=== PATIENT | female | born 1990 | race Two or more races ===

== ENCOUNTER 2022-10-28 19:01 | Emergency (ER) | payer OTHER ==
[~2022-10-28] VITALS: Ht 167.6 cm; Wt 102.1 kg
== END 2022-10-28 22:32 | disposition home or self-care (01) ==
LOC: ER 19:01
DX: O20.9 Hemorrhage in early pregnancy, unspecified (principal); N39.0 Urinary tract infection, site not specified; O23.41 Unspecified infection of urinary tract in pregnancy, first trimester; Z3A.01 Less than 8 weeks gestation of pregnancy

== ENCOUNTER 2022-12-16 13:44 | Emergency (ER) | payer OTHER ==
[~2022-12-16] VITALS: Ht 167.6 cm; Wt 95.7 kg
== END 2022-12-16 19:14 | disposition home or self-care (01) ==
LOC: ER 13:44
DX: O21.9 Vomiting of pregnancy, unspecified (principal); Z3A.12 12 weeks gestation of pregnancy

== ENCOUNTER 2022-12-17 14:36 | Outpatient (CLI) | payer OTHER | END 2022-12-17 15:45 | disposition home or self-care (01) | LOC: PRENATAL 14:36 | PROVIDERS: ATTEND Obstetrics & Gynecology Maternal & Fetal Medicine | DX: O36.80X0 Pregnancy with inconclusive fetal viability, not applicable or unspecified (principal); O26.859 Spotting complicating pregnancy, unspecified trimester; Z3A.12 12 weeks gestation of pregnancy ==

== ENCOUNTER 2023-02-01 22:16 | Emergency (ER) | payer OTHER ==
[~2023-02-01] VITALS: Ht 167.6 cm; Wt 93.4 kg
[2023-02-02] MEDS ORDERED: PEPCID AC20 MG PO (02:24)
== END 2023-02-02 02:26 | disposition home or self-care (01) ==
LOC: ER 22:16
DX: O99.612 Diseases of the digestive system complicating pregnancy, second trimester (principal); R10.11 Right upper quadrant pain; Z3A.18 18 weeks gestation of pregnancy; K80.20 Calculus of gallbladder without cholecystitis without obstruction

== ENCOUNTER 2023-02-11 14:49 | Outpatient (CLI) | payer OTHER ==
[~2023-02-11 14:49] MED LIST: PEPCID AC20 MG PO
== END 2023-02-11 17:02 | disposition home or self-care (01) ==
LOC: PRENATAL 14:49
PROVIDERS: ATTEND Obstetrics & Gynecology Maternal & Fetal Medicine
DX: O35.3XX0 Maternal care for (suspected) damage to fetus from viral disease in mother, not applicable or unspecified (principal); O44.00 Complete placenta previa NOS or without hemorrhage, unspecified trimester; Z3A.20 20 weeks gestation of pregnancy

== ENCOUNTER 2023-05-06 13:54 | Outpatient (CLI) | payer OTHER | END 2023-05-06 17:21 | disposition home or self-care (01) | LOC: PRENATAL 13:54 | PROVIDERS: ATTEND Obstetrics & Gynecology Maternal & Fetal Medicine | DX: O26.849 Uterine size-date discrepancy, unspecified trimester (principal); O36.8199 Decreased fetal movements, unspecified trimester, other fetus; Z3A.32 32 weeks gestation of pregnancy ==

== ENCOUNTER 2023-06-14 14:00 | Inpatient (IN) | payer OTHER ==
[~2023-06-14] VITALS: Ht 167.6 cm; Wt 106.1 kg
[2023-06-24 06:21] LABS: PH,URINE 6.5 (5.0-8.0); URINE APPEARANCE Cloudy; URINE BILIRRUBIN Negative (NEGATIVE); URINE BLOOD Negative; URINE COLOR Dark Yellow; URINE GLUCOSE Negative (NEGATIVE); URINE LEUKOCYTE Small; URINE NITRATE Negative; URINE PROTEIN Trace (NEGATIVE)
[2023-06-24 06:25] LABS: URINE EPITHELIAL CELLS 163.8 uL (0.0-38.8); URINE WBC 102.6 uL (0.0-23.2)
[2023-06-24 06:30] LABS: HEMATOCRIT 30.2 % (36.0-45.00); HEMOGLOBIN 10.3 g/dL (12.0-15.00); MEAN CELL VOLUME 82.9 fL (80.00-100.00); MEAN CORPUSCULAR HEMOGLOBIN 28.4 pg (27.00-32.0); MEAN CORPUSCULAR HGB CONC 34.2 g/dl (32.0-36.0); PLATELET COUNT 306 K/uL (150-450); RED BLOOD COUNT 3.65 M/uL (4.00-6.00)
[2023-06-24 06:45] LABS: INR < 0.93; PARTIAL THROMBOPLASTIN TIME 22.1 SECONDS (22.0-34.0); PROTHROMBIN TIME 9.3 SECONDS (9.0-11.5)
[2023-06-24 06:58] LABS: RED CELL DISTRIBUTION WIDTH 17.8 % (11.5-14.5)
[2023-06-24 07:06] LABS: ALBUMIN 2.7 gm/dL (3.4-5.0); BILIRUBIN TOTAL 0.57 mg/dL (0.3-1.2); CREATININE SERUM 0.63 mg/dL (0.55-1.02); GFR 110.95; GLOBULINA 4.4 G/DL (2.4-3.5); POTASSIUM 4.14 mEq/L (3.5-5.1); TOTAL PROTEIN 7.1 gm/dL (6.4-8.2)
[2023-06-25 07:41] LABS: HEMATOCRIT 30.4 % (36.0-45.00); HEMOGLOBIN 10.2 g/dL (12.0-15.00); MEAN CELL VOLUME 83.7 fL (80.00-100.00); MEAN CORPUSCULAR HGB CONC 33.5 g/dl (32.0-36.0); PLATELET COUNT 297 K/uL (150-450); RED BLOOD COUNT 3.63 M/uL (4.00-6.00); RED CELL DISTRIBUTION WIDTH 17.9 % (11.5-14.5)
== END 2023-06-26 13:19 | disposition home or self-care (01) | DRG 807 ==
LOC: LDR 06-24 04:52 → OB/GYN 06-24 04:52 → LDR 06-24 14:00 → OB/GYN 06-24 16:28
PROVIDERS: ADMIT Obstetrics & Gynecology; ATTEND Obstetrics & Gynecology
PROC: 10E0XZZ Delivery of Products of Conception, External Approach (ICD-10-PCS; principal; 2023-06-24)
PROC: 3E033VJ Introduction of Other Hormone into Peripheral Vein, Percutaneous Approach (ICD-10-PCS; 2023-06-24)
PROC: 3E0P7VZ Introduction of Hormone into Female Reproductive, Via Natural or Artificial Opening (ICD-10-PCS; 2023-06-24)
PROC: 4A1HXCZ Monitoring of Products of Conception, Cardiac Rate, External Approach (ICD-10-PCS; 2023-06-24)
DX: O80 Encounter for full-term uncomplicated delivery (principal); Z37.0 Single live birth; Z3A.39 39 weeks gestation of pregnancy; Z20.822 Contact with and (suspected) exposure to COVID-19